=== PATIENT | female | born 1965 | race Caucasian/White ===

== ENCOUNTER → 2017-08-15 | Emergency (ER) | payer MEDICAID, OTHER ==
[~2017-08-15] MED LIST: ASPIRIN 81 MG CHEWABLE TAB PO ONE; AZITHROMYCIN 250 MG TAB PO ONE; HYOSCYAMINE SULFATE 0.125 MG TAB PO ONE; LEVALBUTEROL 1.25 MG/3 ML DEYVIAL IH ONE; MAG HYDROX/AL HYDROX/SIMETH 30 ML UDCUP PO ONE; METOCLOPRAMIDE 10 MG/2 ML VIAL IVP ONE; ONDANSETRON DISINTEGRATING 4 MG TAB PO ONE
--- NOTE | 2017-08-15 08:43 | CPEKG ---
Heart Rate: 75 RR Interval: 800 P-R Interval: 148 QRSD Interval: 78 QT Interval: 368 QTC Interval: 411 P [place]: 50 QRS [place]: -14 T Wave [place]: 15 EKG Severity - BORDERLINE ECG - EKG Impression: SINUS RHYTHM EKG Impression: PROBABLE LEFT ATRIAL ABNORMALITY Electronically Signed By: Martínez Doran 15-Aug-2017 09:01:28
--- NOTE | 2017-08-15 08:56 | EDPHY ---
H & P Stated Complaint: CP started at 0000 mid sternal,intermittent with back pain,sob Time Seen by Provider: 08/15/17 08:34 HPI/ROS: This 52-year-old female patient was brought in by her brother by private vehicle for evaluation of chest pain that started midnight while at rest substernal location pressure in nature 5/10 intensity currently radiating to her back with more pain in the back 7/10. She has some shortness of breath associated with this. She had difficulty sleeping due to the symptoms last night. She tried ibuprofen without improvement at 2:00 a.m.. She reported nausea and vomiting -3 episodes at 5:00 a.m.. She has ongoing mild nausea currently. She also had diaphoresis associated with her symptoms. She also complains of belly pain that is periumbilical and upper belly primarily. She reports the belly pain started after the chest pain and prior to the vomiting. No exacerbating or alleviating factors are noted for her symptoms. ROS: Constitutional: No fevers or chills. HEENT: She reports some nasal congestion, mild sore throat and ear pressure the past few days she attributes to seasonal allergies. Pulmonary: She reports a mild dry cough over the past few days in addition. She has mild dyspnea as noted in HPI this. She describes this as feeling like she can't get a full breath. Cardiovascular: No heart palpitations. She does report some right calf pain since last night [id number] intensity. She did notice associated calf swelling. GI: As per HPI. No abdominal distension. No hematemesis. She describes her belly discomfort as 3 to 4/10 intensity and crampy in nature. While she does have a history of GERD symptoms in the past she did notice any GERD symptoms last night. She reports normal bowel movements with exception of having more bowel movements over the past 24 hr-3 or so than usual but no diarrhea. : No symptoms Endocrine: Positive diaphoresis. Dermatologic: No pallor or rash. Completely symptoms otherwise negative. Source: Patient Exam Limitations: No limitations - Medical/Surgical History Other PMH: Chronic pain in various locations her body-question fibromyalgia - Family History Significant Family History: No pertinent family hx. No: Heart disease, Vascular disease - Social History Smoking Status: Never smoked Alcohol Use: Occasionally Drug Use: None Additional Social History: The patient helps her mother moved and moved herself 3 days prior to arrival. This involved caring lab. She did not notice any injuries during the moved. - Physical Exam Exam: General Appearance: Pleasant 52-year-old female moderately obese Alert, no distress. Eyes: Pupils equal and round no pallor or injection. ENT, Mouth: Mucous membranes moist. Respiratory: Left-sided mid lung field rales that clear with deep breath and mild rhonchi. Otherwise clear to auscultation bilaterally. Cardiovascular: Regular rate and rhythm. No murmur gallop or rub. No JVD. No peripheral edema. She does have mild right calf tenderness with no swelling. Gastrointestinal: Normoactive, soft, no organomegaly. No significant tenderness, guarding or rebound. Neurological: GCS 15. No focal deficits. Skin: Warm and dry, no rashes. Extremities are symmetrical, full range of motion. Psychiatric: Mood and affect are normal. DIFFERENTIAL DIAGNOSIS: After history and physical exam differential diagnosis was considered for pneumonia, pulmonary embolism, GERD, myocardial ischemic disease, pancreatitis, hepatitis, gastritis, viral gastroenteritis. Constitutional: Initial Vital Signs Temperature (C) 36.6 C 08/15/17 08:36 Heart Rate 72 08/15/17 08:36 Respiratory Rate 20 08/15/17 08:36 Blood Pressure 151/88 H 08/15/17 08:36 O2 Sat (%) 97 08/15/17 08:36 O2 Delivery Mode Room Air Allergies/Adverse Reactions: No Known Allergies Allergy (Verified 08/15/17 08:35) Home Medications: Medication Instructions Recorded Azithromycin [Zithromax] 250 mg PO DAILY #4 tab 08/15/17 Fluticasone Hfa 220 Mcg [Flovent 2 puffs IH DAILY #1 mdi 08/15/17 220 MCG Hfa MDI (*)] Levalbuterol Inhaler [Xopenex Hfa 2 puffs IH Q4 PRN #1 mdi 08/15/17 Inhaler] Ondansetron Odt [Zofran Odt] 4 - 8 mg PO Q4PRN PRN #4 tab 08/15/17 Xopenex Hfa Inhaler (*) 08/15/17 Medical Decision Making - Diagnostics EKG Interpretation: 12 lead EKG performed at 8:38 a.m. Indication chest pain Sinus rhythm at 75 Intervals: [place] 140, QTC of 411, QRS of 78 [place]: P of 50, QRS of -14, T of 15 ST segments: Normal throughout Overall assessment normal sinus rhythm without evidence of acute ischemia Imaging Results: Imaging Impressions Chest X-Ray 08/15/17 09:38 Impression: Bronchitis and minimal bibasilar atelectasis. Two view chest x-ray: Bronchitis with basilar atelectasis by my interpretation Imaging: I viewed and interpreted images myself ED Course/Re-evaluation: IV, normal saline bolus Zofran ODT for nausea Aspirin 324 Studies: CBC with mild leukocytosis, D-dimer is normal and a metabolic panel- CMP is normal. Lipase is normal. Troponin is normal. Xopenex neb with increased aeration, decreased wheeze, subjective improvement The patient declined Zithromax antibiotic. The patient declined flu swab Discussion: Patient presents with epigastric pain, chest pain, dyspnea and a cough. The gets likely after workup, the patient has a viral illness causing her symptoms. She declined flu swab while here. Given her lung findings, chest x-ray and leukocytosis findings are consistent with bronchitis. I counseled regarding this. The patient declined the Zithromax here but accepted script and will take it if she feels her symptoms are worsening despite plan of Xopenex and Flovent. Patient does report reactive airway disease or mild asthma symptoms at baseline and has had improvement with Xopenex in the past. Her EKG does not look ischemic in her troponin is normal. I do not think she has a pulmonary embolism given lack of significant risk factors and a normal D- dimer. We ruled out hepatitis, pancreatitis with normal LFTs and lipase. 1 plans in the patient home on Xopenex, Zofran for nausea vomiting, Zithromax follow up with primary care physician. Patient her stands the need to return emergency department should she develop worsening of her symptoms. - Data Points Laboratory Results: Laboratory Results 08/15/17 09:18 08/15/17 09:18 08/15/17 08/15/17 08/15/17 09:18 09:18 09:18 WBC 12.77 10^3/uL H 10^3/uL (3.80-9.50) RBC 4.60 10^6/uL 10^6/uL (4.18-5.33) Hgb 12.5 g/dL L g/dL (12.6-16.3) Hct 37.3 % L % (38.0-47.0) MCV 81.1 fL L fL (81.5-99.8) MCH 27.2 pg L pg (27.9-34.1) MCHC 33.5 g/dL g/dL (32.4-36.7) RDW 13.2 % % (11.5-15.2) Plt Count 423 10^3/uL H 10^3/uL (150-400) MPV 9.3 fL fL (8.7-11.7) Neut % (Auto) 82.1 % H % (39.3-74.2) Lymph % (Auto) 10.9 % L % (15.0-45.0) Mcmullen % (Auto) 5.7 % % (4.5-13.0) Eos % (Auto) 0.3 % L % (0.6-7.6) Baso % (Auto) 0.6 % % (0.3-1.7) Nucleat RBC Rel Count 0.0 % % (0.0-0.2) Absolute Neuts (auto) 10.48 10^3/uL H 10^3/uL (1.70-6.50) Absolute Lymphs (auto) 1.39 10^3/uL 10^3/uL (1.00-3.00) Absolute Monos (auto) 0.73 10^3/uL 10^3/uL (0.30-0.80) Absolute Eos (auto) 0.04 10^3/uL 10^3/uL (0.03-0.40) Absolute Basos (auto) 0.08 10^3/uL 10^3/uL (0.02-0.10) Absolute Nucleated RBC 0.00 10^3/uL 10^3/uL (0-0.01) Immature Gran % 0.4 % % (0.0-1.1) Immature Gran # 0.05 10^3/uL 10^3/uL (0.00-0.10) PT 13.1 SEC SEC (12.0-15.0) INR 1.00 (0.83-1.16) APTT 30.7 SEC SEC (23.0-38.0) D-Dimer 0.43 ug/mLFEU ug/mLFEU (0.00-0.50) Sodium 133 mEq/L L mEq/L (135-145) Potassium 4.8 mEq/L mEq/L (3.5-5.2) Chloride 102 mEq/L mEq/L (97-110) Carbon Dioxide 19 mEq/l L mEq/l (22-31) Anion Gap 12 mEq/L mEq/L (8-16) BUN 14 mg/dL mg/dL (7-23) Creatinine 0.6 mg/dL mg/dL (0.6-1.0) Estimated GFR > 60 Glucose 150 mg/dL H mg/dL (70-100) Calcium 10.0 mg/dL mg/dL (8.5-10.4) Total Bilirubin 0.4 mg/dL mg/dL (0.1-1.4) AST 27 IU/L IU/L (14-46) ALT 40 IU/L IU/L (9-52) Alkaline Phosphatase 77 IU/L IU/L (38-126) Troponin I < 0.012 ng/mL ng/mL (0.000-0.034) Total Protein 7.3 g/dL g/dL (6.3-8.2) Albumin 3.9 g/dL g/dL (3.5-5.0) Lipase 131 IU/L IU/L (23-300) Medications Given: Discontinued Medications Al Hydroxide/Mg Hydroxide (Maalox Susp) 30 ml PO EDNOW ONE Stop: 08/15/17 09:27 Last Admin: 08/15/17 11:14 Dose: Not Given Aspirin (Aspirin) 324 mg PO EDNOW ONE Stop: 08/15/17 08:49 Last Admin: 08/15/17 09:33 Dose: 324 mg Azithromycin (Zithromax) 500 mg PO EDNOW ONE PRN Reason: Protocol Stop: 08/15/17 10:40 Last Admin: 08/15/17 11:13 Dose: Not Given Diphenhydramine HCl (Benadryl Injection) 25 mg IVP EDNOW ONE Stop: 08/15/17 09:38 Last Admin: 08/15/17 11:13 Dose: Not Given Hyoscyamine Sulfate (Levsin, Hyomax-Sl) 0.25 mg PO ONCE ONE Stop: 08/15/17 08:49 Last Admin: 08/15/17 09:22 Dose: 0.25 mg Levalbuterol (Xopenex 1.25mg Neb) 1.25 mg IH EDNOW ONE Stop: 08/15/17 10:40 Last Admin: 08/15/17 11:10 Dose: 1.25 mg Metoclopramide HCl (Reglan Injection) 5 mg IVP EDNOW ONE Stop: 08/15/17 09:38 Last Admin: 08/15/17 11:14 Dose: Not Given Ondansetron HCl (Zofran Odt) 8 mg PO EDNOW ONE Stop: 08/15/17 08:50 Last Admin: 08/15/17 08:55 Dose: 8 mg Departure - Departure Disposition: Home, Routine, Self-Care Clinical Impression: Chest pain Qualifiers: Chest pain type: unspecified Qualified Code(s): R07.9 - Chest pain, unspecified Acute bronchitis Qualifiers: Bronchitis organism: unspecified organism Qualified Code(s): J20.9 - Acute bronchitis, unspecified Vomiting Qualifiers: Vomiting type: unspecified Vomiting Intractability: non-intractable Nausea presence: with nausea Qualified Code(s): R11.2 - Nausea with vomiting, unspecified Condition: Good Instructions: Azithromycin (By mouth), Ondansetron (By mouth), Fluticasone (By breathing), Chest Pain (ED), Acute Bronchitis (ED), Acute Nausea and Vomiting ( ED) Additional Instructions: Diagnoses: 1. Chest pain 2. Acute bronchitis 3. Vomiting Plan: Humidifier Zofran for nausea or vomiting if needed. Light diet until he feel better-bananas, rice, applesauce, soup & similar Xopenex inhaler for cough, wheeze or shortness of breath Zithromax antibiotic Flovent steroid inhaler in addition Follow up primary care physician for any ongoing symptoms Tylenol for pain if needed. Also consider Maalox or other antacids if needed for upper belly discomfort. Return for any significant worsening despite the treatment plan Referrals: KIM YAÑEZ [Primary Care Provider] - As per Instructions Prescriptions: Azithromycin [Zithromax] 250 mg PO DAILY #4 tab Fluticasone Hfa 220 Mcg [Flovent 220 MCG Hfa MDI (*)] 2 puffs IH DAILY #1 mdi Levalbuterol Inhaler [Xopenex Hfa Inhaler] 2 puffs IH Q4 PRN #1 mdi PRN Reason: Wheezing Ondansetron Odt [Zofran Odt] 4 - 8 mg PO Q4PRN PRN #4 tab PRN Reason: Vomiting
[2017-08-15 09:31] LABS: PLATELET COUNT 423 10^3/uL (150-400)
[2017-08-15 09:36] LABS: PROTIME(PATIENT) 13.1 SEC (12.0-15.0)
[2017-08-15 12:40] VITALS: BP 115/71
== END | disposition home or self-care (01) ==
LOC: CED 08:28
DX: J20.9 Acute bronchitis, unspecified (principal); R11.2 Nausea with vomiting, unspecified
CPT/HCPCS: 71046-PO; 80053-PO; 83690-PO; 84484-PO; 85025-PO; 85378-PO; 85610-PO; 85730-PO